=== PATIENT | female | born 1955 | race Caucasian/White ===

== ENCOUNTER → 2017-03-14 | Outpatient (CLI) | payer OTHER ==
--- NOTE | 2017-03-14 09:01 | DIAGNOSTIC IMAGING REPORT ---
THYROID ULTRASONOGRAPHY CLINICAL HISTORY: E04.2 multinodular thyroid gland COMPARISON STUDY: 01/06/2016, 10/14/2014 FINDINGS: The right lobe of the thyroid measures 45 x 24 x 24 mm. There is a circumscribed wider than tall relatively isoechoic mid pole nodule measuring 23 x 21 x 14 mm. Posterior to this nodule is a circumscribed slightly lobulated hypoechoic nodule measuring 10 x 9 x 9 mm. Both nodules are essentially unchanged in size from the prior study. The left lobe of thyroid measures 47 x 13 x 13 mm. No left-sided nodules are visualized. IMPRESSION: No significant change (since October 2014) in the size of the 2 right-sided thyroid nodules. The deep posterior 1 cm nodule, continues to demonstrate somewhat suspicious ultrasonographic morphology. Electronically signed by: Will Brown M.D. 03/14/2017 9:00 AM Dictated Date/Time: 03/14/2017 8:55 AM
[2017-03-14 11:12] LABS: THYROID STIMULATING HORMONE 0.395 uIu/ml (0.300-4.500)
== END | disposition home or self-care (01) ==
LOC: C.ULTRBC 07:48
PROVIDERS: ATTEND Internal Medicine Endocrinology, Diabetes & Metabolism
DX: E04.2 Nontoxic multinodular goiter (principal)

== ENCOUNTER → 2017-03-20 | Outpatient (CLI) | payer OTHER ==
--- NOTE | 2017-03-21 12:10 | MAMMOGRAPHY REPORT ---
BILATERAL DIGITAL SCREENING MAMMOGRAM TOMOSYNTHESIS WITH CAD: 03/20/2017 CLINICAL HISTORY: Routine screening. Patient has no complaints. It should be noted that the patient failed to follow-up for a previously recommended six-month follow -up diagnostic left mammogram after the biopsy, given that the biopsy marker clip did not correlate w ith the original nodular asymmetry seen on the 01/06/2016 screening mammogram. The pathology results from her biopsy yielded benign fibrocystic changes. TECHNIQUE: Breast tomosynthesis in addition to standard 2D mammography was performed. Current study was also evaluated with a Computer Aided Detection (CAD) system. COMPARISON: Comparison is made to exams dated: 02/08/2016 mammogram, 01/16/2016 mammogram, and 01/06/2016 mammogram - [facility]. BREAST COMPOSITION: There are scattered areas of fibroglandular density in both breasts. FINDINGS: There is a stable ribbon shaped metallic biopsy marker in the left upper outer quadrant. T he nodular asymmetry described on the 01/06/2016 screening mammogram in the lateral posterior left br east, best seen on the CC view is no longer seen. This confirms benignity. No new suspicious mass, architectural distortion or cluster of microcalcifications is seen bilaterally. IMPRESSION: ACR BI-RADS CATEGORY 1: NEGATIVE 1. There is no mammographic evidence of malignancy. A 1 year screening mammogram is recommended. 2. The previously described nodular asymmetry in the lateral posterior left breast for which the bio psy marker clip did not correlate has resolved, confirming benignity. Therefore no further follow-up is needed at this time. The patient will receive written notification of the results. Approximately 10% of breast cancers are not detected with mammography. A negative mammographic report should not delay biopsy if a clinically suggestive mass is present. Ameena Lomeli M.D. ay/:03/20/2017 16:31:56 [employer]: Serina BEDOLLA(Ryan)(Della)(BD), [facility] letter sent: Normal 1/2 BI-RADS Code: ACR BI-RADS Category 1: Negative
== END | disposition home or self-care (01) ==
LOC: C.MAMM 08:25
PROVIDERS: ATTEND Family Medicine
DX: Z12.31 Encounter for screening mammogram for malignant neoplasm of breast (principal)